=== PATIENT | male | born 1950 | race Caucasian/White ===

== ENCOUNTER 2018-03-01 09:13 | Outpatient (CLI) | payer MEDICARE, BC ==
--- NOTE | 2018-03-01 11:03 | CT ---
CHEST CTA WITH AND WITHOUT CONTRAST: HISTORY: Coronary mapping CTA. COMPARISON: None. TECHNIQUE: Pre and post contrast chest CT is performed in the axial plane. FINDINGS: Large subcarinal lymph node, measuring 2 x 0.7 cm. Nonenlarged prevascular lymph nodes. The visuali zed aorta and heart are unremarkable. No significant pericardial fluid. No mediastinal mass, lympha denopathy, or hematoma. Adequate contrast opacification of the central pulmonary arteries. No filling defects. Trachea and central bronchi are patent. There are minimal dependent atelectatic changes. There may be a small left-sided hernia, containing mesenteric fat. No obvious masses in the lung parenchyma. Nodule in the right lower lobe, measuring 4 mm, is felt to be incidental. IMPRESSION: Nonspecific borderline enlarged subcarinal lymph node, as described above. POS: MICAELA
[2018-03-01 11:14] LABS: Hemoglobin 15.2 g/dL (14.0-18.0); Mean Corpuscular Hemoglobin 30.9 pg (27.0-31.0); Mean Corpuscular Volume 93.8 fL (78.0-98.0); Mean Platelet Volume 9.1 fL (7.4-10.4); Platelet Count 220 thou/uL (130-400); RBC Distribution Width 12.6 % (11.5-14.5); Red Blood Cell (RBC) Count 4.92 mill/uL (4.70-6.10); White Blood Cell (WBC) Count 6.9 thou/uL (4.8-10.8)
[2018-03-01 13:17] LABS: PTT 27.9 SEC (22.9-36.1)
[2018-03-01 13:18] LABS: INR-International Normal Ratio 1.2; Prothrombin Time 14.8 SEC (12.0-14.7)
[2018-03-01 13:19] LABS: Anion Gap 15 mmol/L (10-20); BUN (Urea Nitrogen) 22 mg/dL (8.4-25.7); Calc. Creatinine Clearance 0 mL/min (70-130); Carbon Dioxide 26 mmol/L (23-31); Chloride 103 mmol/L (98-107); Estimated GFR-MDRD 69; Glucose 91 mg/dL (80-115); Potassium 4.6 mmol/L (3.5-5.1); Sodium 139 mmol/L (136-145)
[2018-03-01] MEDS ORDERED: Iopamidol 370 76% 100 ML VIAL ONE (13:34)
--- NOTE | 2018-03-01 17:30 | EKG ---
Test Reason : Blood Pressure : / mmHG Vent. Rate : 091 BPM Atrial Rate : 178 BPM P-R Int : 000 ms QRS Dur : 084 ms QT Int : 362 ms P-R-T Axes : 000 -15 017 degrees QTc Int : 445 ms Atrial fibrillation Inferior infarct , age undetermined Abnormal ECG No previous ECGs available Confirmed by ANNA VALLADARES ([id number]) on 03/01/2018 5:29:52 PM Referred By: BUBBA Confirmed By:ANNA VALLADARES
== END 2018-03-01 09:14 | disposition home or self-care (01) ==
LOC: CT 09:13
PROVIDERS: ATTEND Internal Medicine Cardiovascular Disease
DX: I48.91 Unspecified atrial fibrillation (principal); R59.0 Localized enlarged lymph nodes
CPT/HCPCS: 71275; 80048; 82565; 85027; 85610; 85730; 93005; 93010

== ENCOUNTER 2018-03-02 05:51 | Observation (INO) | payer MEDICARE, BC ==
[2018-03-01 11:21] VITALS: BMI 39.4
[2018-03-02] MEDS ORDERED: Lidocaine 1% (PF) 30 ML VIAL ONE (06:43)
[2018-03-02] MEDS ORDERED: Heparin 10,000 UNITS/1 ML VIAL ONE ×3 (07:38→10:43)
[2018-03-02] MEDS ORDERED: Fentanyl 100 MCG/2 ML VIAL ONE (08:13)
[2018-03-02] MEDS ORDERED: Isoproterenol 0.2 MG/1 ML AMP ONE (09:46)
[2018-03-02] MEDS ORDERED: Protamine Sulfate 50 MG/5 ML VIAL ONE (10:50)
--- NOTE | 2018-03-02 11:26 | OP ---
DATE OF PROCEDURE: 03/02/2018 PROCEDURE: 1. Comprehensive EP testing. 3D mapping and ablation of atrial fibrillation. 2. Transseptal catheterization x2. 3. Intracardiac echocardiography. CLINICAL INDICATION: Chronic atrial fibrillation. TEARER: Young Muhammad M.D. ASA CLASSIFICATION: 3. ANESTHESIA: General endotracheal anesthesia per Anesthesiology. ADDITIONAL CARDIAC MEDICATIONS: Isoproterenol 10 mcg per minute infusion for 10 minutes. Total hepa rin given 19,000 units. Total protamine given 40 mg. TOTAL RADIOFREQUENCY TIME: 59 minutes 5 seconds. TOTAL FLUOROSCOPY TIME: Zero. ACUTE COMPLICATIONS: None. METHODS: After informed consent was obtained, the patient taken to the EP lab in fasting state. Bot h groins were prepped and draped using ultrasound guidance, the right and left femoral veins were acc essed and wires were inserted into the central venous system. The wires were used to place an 8 Fren ch and 11-Tajik sheath in the left groin, 2 8 Tajik sheaths in the right groin. All 8 Tajik sheat hs were then replaced by long sheaths for catheter stability. A 10 Tajik echo probe was placed in l eft groin advanced to the right atrium and the right ventricle for imaging. A circular ablation cath eter placed in right groin advanced into the right atrium. A 3D map was obtained to the right atrium and the coronary sinus. The patient was then anticoagulated. A 20-pole catheter placed in left jayden in advanced up to the coronary sinus, the proximal end was in the muna terminalis. An esophageal t emperature probe was placed in the esophagus, colocated with a sensored catheter for visualization of the 3D mapping environment. Transseptal catheterization was performed using ultrasound guidance and 3D mapping. A 3D map was obtained to the left atrium and ablation was delivered at the antral level of all pulmonary veins and posterior wall of the left atrium. The lower portion of the left atrium including tissue overlying the coronary sinus and the roof all the way up to the mitral valve annulus . Ablation was also delivered debulking the coronary sinus. The patient was then cardioverted no fu rther arrhythmias were seen despite ____ challenge. RESULTS: 1. Baseline intervals; HV interval 40 milliseconds, both at the beginning of the procedure and after scientology of sinus rhythm. 2. Atrial function. The patient was in a coarse atrial fibrillation with moderate to severe scarrin g seen in the left atrium. Ablation was delivered isolating all 4 pulmonary veins and the posterior wall of the left atrium as well as the roof and the coronary sinus. The left atrial appendage was ab lated at the base, but was not isolated. Coronary sinus was debulked, but not completely isolated ex cept on the distal end. IMPRESSION: Successful PV isolation including posterior wall roof, floor and debulking of the solomon ry sinus. RECOMMENDATION: Continue with oral anticoagulation for a minimum of 3 months.
[2018-03-02] MEDS ORDERED: Loratadine 10 MG TAB PO PRN (11:52)
[2018-03-02] MEDS ORDERED: MUCINEX D PO PRN (11:53)
[2018-03-02] MEDS ORDERED: Dexamethasone 20 MG/5 ML VIAL ONE (14:38)
[2018-03-02] MEDS ORDERED: PROPOFOL 200 MG/20 ML VIAL ONE (14:38)
[2018-03-02] MEDS ORDERED: Glycopyrrolate 0.2 MG/ML 5 ML SYRINGE ONE (14:38)
[2018-03-02] MEDS ORDERED: Lidocaine 1% PF 5 ML VIAL ONE (14:38)
[2018-03-02] MEDS ORDERED: Heparin 30,000 units/30 ml VIAL ONE (14:38)
[2018-03-02] MEDS ORDERED: PHENYLEPHRINE-NS 100 MCG/ML 10 ML SYRINGE ONE (14:38)
[2018-03-02] MEDS ORDERED: Furosemide 100 MG/10 ML VIAL SLOW IVP SCH ×2 (16:30→21:00)
[2018-03-02] MEDS ORDERED: Atorvastatin Calcium 20 MG TAB PO SCH (21:00)
--- NOTE | 2018-03-03 06:17 | EKG ---
Test Reason : ABLATION Blood Pressure : / mmHG Vent. Rate : 092 BPM Atrial Rate : 092 BPM P-R Int : 238 ms QRS Dur : 096 ms QT Int : 398 ms P-R-T Axes : 060 -11 051 degrees QTc Int : 492 ms Sinus rhythm with 1st degree A-V block Inferior infarct (cited on or before 01-MAR-2018) Abnormal ECG When compared with ECG of 01-MAR-2018 12:13, Sinus rhythm has replaced Atrial fibrillation ST elevation now present in Inferior leads /minimal elevation QT has lengthened Confirmed by ANNA VALLADARES ([id number]) on 03/03/2018 6:17:11 AM Referred By: BUBBA Confirmed By:ANNA VALLADARES
--- NOTE | 2018-03-03 07:59 | DIS ---
DATE OF ADMISSION: 03/02/2018 DATE OF DISCHARGE: 03/03/2018 TOTAL LENGTH OF STAY: 23 hours. DISCHARGE DIAGNOSIS: Atrial fibrillation. PROCEDURE PERFORMED: Comprehensive EP testing with 3D mapping and ablation of atrial fibrillation. CLINICAL SUMMARY: The patient underwent extensive ablation of his left atrium isolating veins, poste rior wall and roof and coronary sinus yesterday. His postoperative course was uncomplicated. He is being discharged home in stable condition. DISCHARGE MEDICATIONS: Xarelto 20 mg every day, Lipitor 20 mg every day, metoprolol 37.5 mg every da y, vitamin D, C and E supplements, zinc supplements, fatty acid supplements and olmesartan 20 mg p.o. q.a.m. He is also being given a prescription for Lasix 40 mg b.i.d. and potassium 20 mEq b.i.d. for 5 days and colchicine 0.3 mg p.o. b.i.d. for 20 days. FOLLOWUP: Follow up is with me in 6 weeks.
[2018-03-03 08:13] VITALS: BP 146/67; TEMP 98.3
[2018-03-03] MEDS ORDERED: Fish Oil 1,000 MG CAP PO SCH (09:00)
[2018-03-03] MEDS ORDERED: Furosemide 100 MG/10 ML VIAL SLOW IVP SCH (09:00)
[2018-03-03] MEDS ORDERED: Ascorbic Acid 500 mg Chewable Tablet PO SCH (09:00)
[2018-03-03] MEDS ORDERED: Cefdinir 300 MG CAP PO SCH (09:00)
[2018-03-03] MEDS ORDERED: Azithromycin 250 MG TAB PO SCH (09:00)
[2018-03-03] MEDS ORDERED: Rivaroxaban 10 MG TAB PO SCH (09:00)
--- NOTE | 2018-03-03 13:47 | EKG ---
Test Reason : Blood Pressure : / mmHG Vent. Rate : 089 BPM Atrial Rate : 089 BPM P-R Int : 214 ms QRS Dur : 090 ms QT Int : 366 ms P-R-T Axes : 019 000 034 degrees QTc Int : 445 ms Sinus rhythm with 1st degree A-V block with Premature supraventricular complexes Inferior infarct (cited on or before 01-MAR-2018) Abnormal ECG When compared with ECG of 02-MAR-2018 11:18, Premature supraventricular complexes are now Present QT has shortened Confirmed by ANNA VALLADARES ([id number]) on 03/03/2018 1:47:14 PM Referred By: BUBBA Confirmed By:ANNA VALLADARES
== END 2018-03-03 09:07 | disposition home or self-care (01) ==
LOC: CCL 05:51 → 2SW 11:35
PROVIDERS: ADMIT Internal Medicine Cardiovascular Disease; ATTEND Internal Medicine Cardiovascular Disease
PROC: 4A023FZ Measurement of Cardiac Rhythm, Percutaneous Approach (ICD-10-PCS; principal; 2018-03-02)
PROC: 4A0234Z Measurement of Cardiac Electrical Activity, Percutaneous Approach (ICD-10-PCS; 2018-03-02)
PROC: 02583ZZ Destruction of Conduction Mechanism, Percutaneous Approach (ICD-10-PCS; 2018-03-02)
PROC: 02K83ZZ Map Conduction Mechanism, Percutaneous Approach (ICD-10-PCS; 2018-03-02)
DX: I48.2 Chronic atrial fibrillation (principal); I48.1 Persistent atrial fibrillation; I10 Essential (primary) hypertension; Z86.718 Personal history of other venous thrombosis and embolism; Z79.01 Long term (current) use of anticoagulants; Z79.899 Other long term (current) drug therapy
CPT/HCPCS: 76942; 85347 ×2; 93005 ×2; 93613; 93623; 93656; 93662; 96374; 96376; C1731; C1732 ×3; C1759; C1769; G0378; 93010; J1100; J1644; J1940; J2001; J2704; J2720; J3010

== ENCOUNTER 2018-04-11 10:01 | Day surgery (SDC) | payer MEDICARE, BC ==
[2018-04-10 12:28] VITALS: BMI 38.7
[2018-04-11 10:55] LABS: #Eosinphils 0.1 thou/uL (0.0-0.7); #Lymphocytes 2.3 thou/uL (1.20-3.40); #Monocytes 0.5 thou/uL (0.11-0.59); #Neutrophils 4.5 thou/uL (1.40-6.50); %Basophils 0.4 % (0.0-1.0); %Eosinophils 1.9 % (0.0-10.0); %Lymphocytes 30.3 % (21.0-51.0); %Neutrophils 60.4 % (42.0-75.0); Hemoglobin 14.3 g/dL (14.0-18.0); Mean Corpuscular HGB CONC 32.9 g/dL (32.0-36.0); Mean Corpuscular Hemoglobin 30.9 pg (27.0-31.0); Mean Corpuscular Volume 93.8 fL (78.0-98.0); Mean Platelet Volume 8.8 fL (7.4-10.4); Platelet Count 179 thou/uL (130-400); RBC Distribution Width 12.3 % (11.5-14.5); Red Blood Cell (RBC) Count 4.62 mill/uL (4.70-6.10); White Blood Cell (WBC) Count 7.4 thou/uL (4.8-10.8)
[2018-04-11 10:58] LABS: INR-International Normal Ratio 1.3; PTT 28.4 SEC (22.9-36.1); Prothrombin Time 16.4 SEC (12.0-14.7)
[2018-04-11 11:10] LABS: Anion Gap 12 mmol/L (10-20); BUN (Urea Nitrogen) 23 mg/dL (8.4-25.7); Calc. Creatinine Clearance 123 mL/min (70-130); Calcium 9.5 mg/dL (7.8-10.44); Carbon Dioxide 26 mmol/L (23-31); Chloride 105 mmol/L (98-107); Estimated GFR-MDRD 64; Glucose 100 mg/dL (80-115); Potassium 4.3 mmol/L (3.5-5.1); Sodium 139 mmol/L (136-145)
[2018-04-11] MEDS ORDERED: Lisinopril 10 MG TAB ONE (12:11)
[2018-04-11] MEDS ORDERED: PROPOFOL 0 ML ONE (12:11)
[2018-04-11] MEDS ORDERED: Lidocaine 2% PF 100 mg/5 ml Syringe ONE (12:25)
[2018-04-11] MEDS ORDERED: PROPOFOL 20 ML ONE ×2 (12:25→12:26)
--- NOTE | 2018-04-11 13:24 | OP ---
DATE OF PROCEDURE: 04/11/2018 SURGEON: Dr. Alex Mcclendon PROCEDURE: Cardioversion. REFERRING PHYSICIAN: Dr. William REASON FOR PROCEDURE: Mr. Myeer is a 67-year-old man with prior history of persistent atrial fibril lation, status post pulmonary venous isolation procedure, who had an early recurrence of atrial fibri llation. He is on uninterrupted Xarelto. He also will be starting flecainide. He is here for cardi oversion. PROCEDURE: The patient received propofol by Anesthesia specialist. After adequate sedation achieved , a synchronized 150 joule failed, but a subsequent 300 joule converted him back to sinus rhythm, ret urned rates are 61 beats per minute. The patient tolerated the procedure well, no complications note d. PLAN: Continue flecainide and oral anticoagulants and routine followup in the office.
[2018-04-11] MEDS ORDERED: Lidocaine 1% PF 5 ML VIAL ONE (13:44)
[2018-04-11] MEDS ORDERED: PROPOFOL 200 MG/20 ML VIAL ONE (13:44)
--- NOTE | 2018-04-11 15:41 | EKG ---
Test Reason : PREOP Blood Pressure : / mmHG Vent. Rate : 072 BPM Atrial Rate : 416 BPM P-R Int : 000 ms QRS Dur : 094 ms QT Int : 400 ms P-R-T Axes : 000 -07 016 degrees QTc Int : 438 ms Atrial fibrillation Inferior infarct (cited on or before 01-MAR-2018) Abnormal ECG When compared with ECG of 03-MAR-2018 07:18, Atrial fibrillation has replaced Sinus rhythm Confirmed by JOSEPHINE HERNANDEZ, . SCece ([id number]) on 04/11/2018 3:41:25 PM Referred By: CHRIS Confirmed By:DR. Stacie BURTON MD
--- NOTE | 2018-04-11 15:48 | EKG ---
Test Reason : CARDIOVERSION Blood Pressure : / mmHG Vent. Rate : 055 BPM Atrial Rate : 056 BPM P-R Int : 236 ms QRS Dur : 100 ms QT Int : 444 ms P-R-T Axes : 047 -07 023 degrees QTc Int : 424 ms Sinus bradycardia with 1st degree A-V block Inferior infarct (cited on or before 01-MAR-2018) Abnormal ECG When compared with ECG of 11-APR-2018 10:58, (Unconfirmed) Sinus rhythm has replaced Atrial fibrillation Serial changes of Inferior infarct Present Confirmed by JOSEPHINE HERNANDEZ, . SCece ([id number]) on 04/11/2018 3:47:40 PM Referred By: [facility] Confirmed By:DR. Stacie BURTON MD
== END 2018-04-11 13:40 | disposition home or self-care (01) ==
LOC: CCL 10:01
PROVIDERS: ATTEND Internal Medicine Cardiovascular Disease
PROC: 5A2204Z Restoration of Cardiac Rhythm, Single (ICD-10-PCS; principal; 2018-04-11)
DX: I48.1 Persistent atrial fibrillation (principal); I10 Essential (primary) hypertension; E78.5 Hyperlipidemia, unspecified; E66.01 Morbid (severe) obesity due to excess calories; Z68.38 Body mass index [BMI] 38.0-38.9, adult; Z86.718 Personal history of other venous thrombosis and embolism; Z79.01 Long term (current) use of anticoagulants; Z79.899 Other long term (current) drug therapy; Z98.890 Other specified postprocedural states
CPT/HCPCS: 36415; 80048; 85025; 85610; 85730; 92960; 93005; 93010; J2001; J2704

== ENCOUNTER 2018-06-05 12:06 | Day surgery (SDC) | payer MEDICARE, BC ==
[2018-06-02 14:40] VITALS: BMI 39.4
[2018-06-05 12:59] LABS: #Basophils 0.1 thou/uL (0.0-0.2); #Lymphocytes 1.5 thou/uL (1.20-3.40); #Monocytes 0.4 thou/uL (0.11-0.59); #Neutrophils 7.7 thou/uL (1.40-6.50); %Basophils 0.6 % (0.0-1.0); %Eosinophils 0.4 % (0.0-10.0); %Lymphocytes 15.2 % (21.0-51.0); %Monocytes 4.1 % (0.0-10.0); %Neutrophils 79.7 % (42.0-75.0); Hemoglobin 14.5 g/dL (14.0-18.0); Mean Corpuscular HGB CONC 31.5 g/dL (32.0-36.0); Mean Corpuscular Hemoglobin 29.7 pg (27.0-31.0); Mean Corpuscular Volume 94.3 fL (78.0-98.0); Mean Platelet Volume 8.4 fL (7.4-10.4); Platelet Count 220 thou/uL (130-400); RBC Distribution Width 12.8 % (11.5-14.5); Red Blood Cell (RBC) Count 4.89 mill/uL (4.70-6.10); White Blood Cell (WBC) Count 9.7 thou/uL (4.8-10.8)
[2018-06-05] MEDS ORDERED: PROPOFOL 20 ML ONE (13:03)
[2018-06-05 13:05] LABS: INR-International Normal Ratio 1.1; PTT 26.6 SEC (22.9-36.1); Prothrombin Time 14.6 SEC (12.0-14.7)
[2018-06-05 13:18] LABS: Anion Gap 13 mmol/L (10-20); BUN (Urea Nitrogen) 20 mg/dL (8.4-25.7); Calc. Creatinine Clearance 152 mL/min (70-130); Calcium 9.5 mg/dL (7.8-10.44); Carbon Dioxide 25 mmol/L (23-31); Chloride 105 mmol/L (98-107); Estimated GFR-MDRD 80; Glucose 99 mg/dL (80-115); Potassium 4.5 mmol/L (3.5-5.1); Sodium 138 mmol/L (136-145)
[2018-06-05] MEDS ORDERED: PROPOFOL 200 MG/20 ML VIAL ONE (13:43)
--- NOTE | 2018-06-05 14:02 | OP ---
DATE OF PROCEDURE: 06/05/2018 SURGEON: Dr. Alex Mcclendon PROCEDURE: Cardioversion. REFERRING PHYSICIAN: Dr. Asim Chen REASON FOR PROCEDURE: Mr. Meyer is a 67-year-old man with prior history of paroxysmal atrial arrhyt hmias. He underwent a repeated pulmonary venous isolation procedure most recently by Dr. Muhammad on 0 03/02/2018, now has another recurrence. Here for a repeat cardioversion after increasing his flecaini de to 150 mg twice a day. PROCEDURE: The patient received propofol by Anesthesia specialist. After adequate level of sedation achieved, a synchronized 100 joule shock failed to convert him back to sinus rhythm. Following that a 300 joules synchronized shock was delivered which now converted him back to sinus rhythm. His rhy thm is 60 beats per minute. No complications noted. PLAN: Continue Eliquis and flecainide.
--- NOTE | 2018-06-11 21:20 | EKG ---
Test Reason : PREOP CARDIOVERSION Blood Pressure : / mmHG Vent. Rate : 080 BPM Atrial Rate : 330 BPM P-R Int : 000 ms QRS Dur : 106 ms QT Int : 400 ms P-R-T Axes : 000 -20 003 degrees QTc Int : 461 ms Atrial flutter with variable A-V block Inferior infarct (cited on or before 01-MAR-2018) Abnormal ECG When compared with ECG of 11-APR-2018 13:00, Atrial flutter has replaced Sinus rhythm Confirmed by YAMILET PACHECO (2) on 06/11/2018 9:20:19 PM Referred By: CHRIS Confirmed By:YAMILET PACHECO
--- NOTE | 2018-06-11 21:32 | EKG ---
Test Reason : POST CARDIOVERSION Blood Pressure : / mmHG Vent. Rate : 064 BPM Atrial Rate : 064 BPM P-R Int : 240 ms QRS Dur : 104 ms QT Int : 430 ms P-R-T Axes : 048 -15 022 degrees QTc Int : 443 ms Sinus rhythm with 1st degree A-V block Inferior infarct (cited on or before 01-MAR-2018) Abnormal ECG When compared with ECG of 05-JUN-2018 12:41, (Unconfirmed) Sinus rhythm has replaced Atrial flutter Confirmed by YAMILET PACHECO (2) on 06/11/2018 9:32:29 PM Referred By: CHRIS Confirmed By:YAMILET PACHECO
== END 2018-06-05 14:50 | disposition home or self-care (01) ==
LOC: CCL 12:06
PROVIDERS: ATTEND Internal Medicine Cardiovascular Disease
PROC: 5A2204Z Restoration of Cardiac Rhythm, Single (ICD-10-PCS; principal; 2018-06-05)
DX: I48.1 Persistent atrial fibrillation (principal); I48.4 Atypical atrial flutter; E78.5 Hyperlipidemia, unspecified; I10 Essential (primary) hypertension; E66.9 Obesity, unspecified; Z68.39 Body mass index [BMI] 39.0-39.9, adult; Z86.718 Personal history of other venous thrombosis and embolism; Z79.01 Long term (current) use of anticoagulants; Z79.52 Long term (current) use of systemic steroids; Z79.899 Other long term (current) drug therapy; Z98.890 Other specified postprocedural states
CPT/HCPCS: 36415; 80048; 85025; 85610; 85730; 92960; 93005; 93010; J2704

== ENCOUNTER 2018-06-29 05:57 | Observation (INO) | payer MEDICARE, BC ==
[2018-06-28 14:00] VITALS: BMI 39.4
[2018-06-29] MEDS ORDERED: Heparin 0 ML ONE (06:26)
[2018-06-29] MEDS ORDERED: Heparin 10,000 UNITS/1 ML VIAL ONE ×3 (06:26→11:49)
[2018-06-29] MEDS ORDERED: Heparin 25,000 units/D5W 0 ML ONE (06:27)
[2018-06-29] MEDS ORDERED: Ondansetron HCl/PF 4 MG/2 ML Vial IVP PRN ×2 (06:47→12:38)
[2018-06-29] MEDS ORDERED: Lidocaine 1% (PF) 30 ML VIAL ONE (06:49)
[2018-06-29] MEDS ORDERED: Fentanyl 100 MCG/2 ML VIAL ONE (06:57)
[2018-06-29] MEDS ORDERED: PHENYLEPHRINE-NS 100 MCG/ML 10 ML SYRINGE ONE (09:32)
[2018-06-29] MEDS ORDERED: Ondansetron PF 4 MG/2 ML Vial ONE (09:32)
[2018-06-29] MEDS ORDERED: Glycopyrrolate 0.2 MG/ML 5 ML SYRINGE ONE (09:32)
[2018-06-29] MEDS ORDERED: Ketorolac Tromethamine 30 MG/ML VIAL ONE (09:32)
[2018-06-29] MEDS ORDERED: Dexamethasone 20 MG/5 ML VIAL ONE (09:32)
[2018-06-29] MEDS ORDERED: Lidocaine 1% PF 5 ML VIAL ONE (09:32)
[2018-06-29] MEDS ORDERED: PROPOFOL 200 MG/20 ML VIAL ONE (09:32)
[2018-06-29] MEDS ORDERED: Protamine Sulfate 50 MG/5 ML VIAL ONE ×2 (12:26→12:31)
[2018-06-29] MEDS ORDERED: Isoproterenol 0.2 MG/1 ML AMP ONE (12:31)
[2018-06-29] MEDS ORDERED: Acetaminophen/Codeine 30-300mg Tablet PO PRN ×2 (14:45)
[2018-06-29] MEDS ORDERED: Furosemide 40 MG/4 ML VIAL SLOW IVP SCH (14:45)
[2018-06-29] MEDS ORDERED: Mometasone Furoate 120 PUFF 220 MCG INH PRN (16:55)
[2018-06-29] MEDS ORDERED: Loratadine 10 MG TAB PO PRN (16:55)
[2018-06-29] MEDS ORDERED: MUCINEX D PO PRN (16:57)
[2018-06-29] MEDS ORDERED: Atorvastatin Calcium 20 MG TAB PO SCH (21:00)
[2018-06-29] MEDS: Apixaban 5 MG TAB PO SCH (21:30)
[2018-06-29] MEDS: Flecainide 50 MG TAB PO SCH (21:30)
[2018-06-30] MEDS ORDERED: Furosemide 20 MG TAB PO SCH (09:00)
[2018-06-30] MEDS ORDERED: Zinc Sulfate 220 MG CAP PO SCH (09:00)
[2018-06-30] MEDS ORDERED: Ascorbic Acid 500 mg Chewable Tablet PO SCH (09:00)
--- NOTE | 2018-06-30 09:01 | OP ---
DATE OF PROCEDURE: 06/29/2018 PROCEDURE PERFORMED: Radiofrequency ablation for atrial fibrillation. PREOPERATIVE DIAGNOSES: Atrial fibrillation and atypical flutter. PROCEDURE DETAILS: The patient came to the EP lab in the postobstructive state. Informed consent was obtained. The patient was sedated by member of the anesthesia staff. Once this patient was adequately sedated, the right and left femoral regions were prepped and draped in the usual sterile fashion. Using a modified Seldinger technique and with ultrasound guidance, access was obtained x2 in the right femoral vein, x1 in the left femoral vein, and x1 in the right internal jugular vein. An intracardiac echocardiogram catheter was advanced from the left femoral vein placed in the right atrium for intraprocedural guidance. A duodecapolar catheter was advanced from the right internal jugular vein, placed into the coronary sinus with distal 10 poles for coronary sinus pacing and recording. Two transseptal punctures were made using an SL0 and an LA multipurpose sheath to place a 10-pole 20-mm circular mapping catheter into the left atrium as well as a J-curved [employer] cardiac ablation catheterization. A 3D electroanatomical map was made of the atypical atrial flutter. The cycle length of this flutter was approximately 200 milliseconds. The flutter was mapped to the roof area. After the map was made, radiofrequency application was delivered along the roof as well as the posterior wall resulting in termination of the flutter. The right inferior pulmonary vein needed to be re-isolated. This was, therefore, re-isolated as was the posterior wall down towards the mitral valve. The coronary sinus was ablated endocardially as well as epicardially through the coronary sinus, and the superior vena cava was also ablated. Isoproterenol was given. A total RF time of 41 minutes were delivered. There were no obvious nonpulmonary vein triggers. Catheters were, therefore, removed. Sheaths were removed, and hemostasis was obtained with placement of FK devices for the 3 femoral sheaths and manual pressure for the neck. The patient tolerated the procedure well and was discharged to the EP lab in stable condition. PROCEDURE PERFORMED: Atrial fibrillation ablation with transseptal puncture intracardiac guidance, 3D electroanatomical map drug delivery with isoproterenol, ablation of atypical atrial flutter which is an SVT. COMPLICATIONS: None acute. ESTIMATED BLOOD LOSS: Less than 30 mL. CONCLUSIONS: 1. Successful management of atrial flutter. 2. Successful re-isolation of posterior wall and pulmonary veins. 3. Successful ablation of the coronary sinus and superior vena cava. RECOMMENDATIONS: The patient will be at bedrest for 1 to 2 hours. He will continue anticoagulant therapy and antiarrhythmic drugs and follow up with Electrophysiology in 6 weeks. Job ID: [id number]
[2018-06-30] MEDS: Flecainide 50 MG TAB PO SCH (09:41)
[2018-06-30] MEDS: Apixaban 5 MG TAB PO SCH (09:41)
[2018-06-30 12:03] VITALS: BP 118/70; TEMP 98.4
--- NOTE | 2018-07-01 07:06 | DIS ---
DATE OF ADMISSION: 06/29/2018 DATE OF DISCHARGE: 06/30/2018 ADMITTING DIAGNOSES: 1. Paroxysmal atrial fibrillation. a. Prior history of pulmonary venous isolation procedure on 03/02/2018. b. Status post redo pulmonary venous isolation procedure on 06/29/[address] Ponce on a total of 41 minutes of ablation delivered. Atrial flutter was met to the roof area as well as the posterior wall where the flutter terminated. The right inferior pulmonary vein was re-isolated. Coronary sinus was ablated endocardially and epicardially. No other triggers were noted. HOSPITAL COURSE: He remained stable overnight. Subsequent days, he stayed in sinus rhythm. PHYSICAL EXAMINATION: VITAL SIGNS: Blood pressure 118/70, heart rate 83, respiratory rate 18, temperature 98.4 degrees Fahrenheit. GENERAL: Reveals alert and oriented man with elevated BMI. NECK: Supple. Jugular veins not distended. CHEST: Coarse without crackles. HEART: Sounds are regular rate and rhythm. No murmur or gallop. ABDOMEN: Benign. Bowel sounds positive. EXTREMITIES: Lower extremities; no edema, clubbing or cyanosis. The groin sites are without significant hematoma. DATABASE: Telemetry disclosed sinus rhythm. PLAN: Discharge home. The patient was given prescription for, 1. Protonix 40 mg for a month. 2. Carafate 1 g every 6 hours for the next 2 weeks, then stop. 3. He is also given a prescription for Lasix 40 mg p.r.n. for 10 pills. 4. K-Dur 20 mEq daily if needed with Lasix. He is encouraged to continue on his home medication except the flecainide will be stopped: 1. Apixaban 5 mg p.o. twice a day. 2. Metoprolol 50 mg daily. 3. Benicar. 4. Zinc supplement. 5. Ascorbic acid. 6. Cetirizine. 7. Guaifenesin. 8. Furosemide. 9. Lipitor to continue. FOLLOWUP: A 6-week followup will be requested. Job ID: [id number]
== END 2018-06-30 15:02 | disposition home or self-care (01) ==
LOC: CCL 05:57 → 2SW 12:40
PROVIDERS: ADMIT Specialist; ATTEND Specialist
PROC: 02583ZZ Destruction of Conduction Mechanism, Percutaneous Approach (ICD-10-PCS; principal; 2018-06-29)
PROC: 02K83ZZ Map Conduction Mechanism, Percutaneous Approach (ICD-10-PCS; 2018-06-29)
PROC: 4A023FZ Measurement of Cardiac Rhythm, Percutaneous Approach (ICD-10-PCS; 2018-06-29)
PROC: 4A0234Z Measurement of Cardiac Electrical Activity, Percutaneous Approach (ICD-10-PCS; 2018-06-29)
DX: I48.0 Paroxysmal atrial fibrillation (principal); I48.92 Unspecified atrial flutter; I47.1 Supraventricular tachycardia; I10 Essential (primary) hypertension; E66.9 Obesity, unspecified; Z68.39 Body mass index [BMI] 39.0-39.9, adult; Z79.01 Long term (current) use of anticoagulants; Z79.899 Other long term (current) drug therapy
CPT/HCPCS: 76942; 85347 ×2; 93005 ×2; 93613; 93623; 93656; 93657; 93662; 96374; C1731; C1759; C1769; G0378; 93010; J1100; J1644; J1885; J1940; J2001; J2405; J2704; J2720; J3010

== ENCOUNTER 2018-09-22 09:33 | Day surgery (SDC) | payer MEDICARE, BC ==
[2018-09-21 12:16] VITALS: BMI 38.7
[2018-09-22 10:28] LABS: #Eosinphils 0.1 thou/uL (0.0-0.7); #Lymphocytes 2.1 thou/uL (1.20-3.40); #Monocytes 0.4 thou/uL (0.11-0.59); #Neutrophils 3.4 thou/uL (1.40-6.50); %Basophils 0.3 % (0.0-1.0); %Eosinophils 2.3 % (0.0-10.0); %Lymphocytes 34.7 % (21.0-51.0); %Monocytes 6.1 % (0.0-10.0); %Neutrophils 56.6 % (42.0-75.0); Hemoglobin 13.8 g/dL (14.0-18.0); Mean Corpuscular HGB CONC 31.9 g/dL (32.0-36.0); Mean Corpuscular Hemoglobin 29.2 pg (27.0-31.0); Mean Corpuscular Volume 91.6 fL (78.0-98.0); Mean Platelet Volume 8.3 fL (7.4-10.4); Platelet Count 189 thou/uL (130-400); RBC Distribution Width 12.9 % (11.5-14.5); Red Blood Cell (RBC) Count 4.73 mill/uL (4.70-6.10); White Blood Cell (WBC) Count 5.9 thou/uL (4.8-10.8)
[2018-09-22 10:33] LABS: INR-International Normal Ratio 1.9; PTT 31.2 SEC (22.9-36.1); Prothrombin Time 21.5 SEC (12.0-14.7)
[2018-09-22 10:47] LABS: Anion Gap 12 mmol/L (10-20); BUN (Urea Nitrogen) 14 mg/dL (8.4-25.7); Calc. Creatinine Clearance 145 mL/min (70-130); Calcium 9.7 mg/dL (7.8-10.44); Carbon Dioxide 27 mmol/L (23-31); Chloride 106 mmol/L (98-107); Estimated GFR-MDRD 77; Glucose 91 mg/dL (80-115); Potassium 4.2 mmol/L (3.5-5.1); Sodium 141 mmol/L (136-145)
[2018-09-22] MEDS ORDERED: PROPOFOL 20 ML ONE (11:09)
--- NOTE | 2018-09-22 13:08 | OP ---
DATE OF PROCEDURE: 09/22/2018 CARDIOVERSION REPORT REASON FOR PROCEDURE: Mr. Meyer is a 67-year-old gentleman with history of recurrent atrial arrhythmias, multiple ablations in the past, most recently on June 29. He is here for recurrent atrial arrhythmias in August, status post flecainide loading. DESCRIPTION OF PROCEDURE: The patient received propofol by Anesthesia specialist. After adequate level of sedation achieved, a synchronized 200 joule shock externally delivered and promptly converted the patient back to sinus rhythm. CONCLUSIONS: Successful cardioversion. PLAN: Continue uninterrupted anticoagulation and continue flecainide therapy and routine followup in the office. Job ID: [id number]
[2018-09-22] MEDS ORDERED: PROPOFOL 200 MG/20 ML VIAL ONE (14:18)
--- NOTE | 2018-09-22 15:03 | EKG ---
Test Reason : PREOP Blood Pressure : / mmHG Vent. Rate : 078 BPM Atrial Rate : 441 BPM P-R Int : 000 ms QRS Dur : 096 ms QT Int : 390 ms P-R-T Axes : 000 -20 017 degrees QTc Int : 444 ms Atrial fibrillation Inferior infarct (cited on or before 29-JUN-2018) Abnormal ECG Confirmed by DOUG MANN ([id number]) on 09/22/2018 3:03:19 PM Referred By: CHRIS Confirmed By:DOUG MANN
== END 2018-09-22 12:15 | disposition home or self-care (01) ==
LOC: CCL 09:33
PROVIDERS: ATTEND Internal Medicine Cardiovascular Disease
PROC: 5A2204Z Restoration of Cardiac Rhythm, Single (ICD-10-PCS; principal; 2018-09-22)
DX: I49.8 Other specified cardiac arrhythmias (principal); Z79.01 Long term (current) use of anticoagulants; Z79.899 Other long term (current) drug therapy; Z98.890 Other specified postprocedural states
CPT/HCPCS: 80048; 85025; 85610; 85730; 92960; 93005; 93010; J2704

== ENCOUNTER 2018-12-12 05:53 | Observation (INO) | payer MEDICARE, BC ==
[2018-12-12] MEDS ORDERED: Heparin 10,000 UNITS/1 ML VIAL ONE ×2 (06:45→09:45)
[2018-12-12 07:04] LABS: #Eosinphils 0.2 thou/uL (0.0-0.7); #Lymphocytes 2.1 thou/uL (1.20-3.40); #Monocytes 0.5 thou/uL (0.11-0.59); #Neutrophils 3.1 thou/uL (1.40-6.50); %Basophils 0.5 % (0.0-1.0); %Eosinophils 2.6 % (0.0-10.0); %Lymphocytes 35.8 % (21.0-51.0); %Monocytes 8.9 % (0.0-10.0); %Neutrophils 52.3 % (42.0-75.0); Mean Corpuscular HGB CONC 33.1 g/dL (32.0-36.0); Mean Corpuscular Hemoglobin 30.5 pg (27.0-31.0); Mean Corpuscular Volume 92.2 fL (78.0-98.0); Mean Platelet Volume 8.7 fL (7.4-10.4); Platelet Count 169 thou/uL (130-400); RBC Distribution Width 13.2 % (11.5-14.5); Red Blood Cell (RBC) Count 4.59 mill/uL (4.70-6.10); White Blood Cell (WBC) Count 5.9 thou/uL (4.8-10.8)
[2018-12-12 07:07] LABS: INR-International Normal Ratio 1.6; PTT 31.4 SEC (22.9-36.1)
[2018-12-12 07:17] LABS: Anion Gap 13 mmol/L (10-20); BUN (Urea Nitrogen) 16 mg/dL (8.4-25.7); Calc. Creatinine Clearance 0 mL/min (70-130); Calcium 9.6 mg/dL (7.8-10.44); Carbon Dioxide 22 mmol/L (23-31); Chloride 108 mmol/L (98-107); Estimated GFR-MDRD 66; Glucose 102 mg/dL (80-115); Potassium 4.3 mmol/L (3.5-5.1); Sodium 139 mmol/L (136-145)
[2018-12-12] MEDS ORDERED: PROPOFOL 40 ML ONE (07:29)
[2018-12-12] MEDS ORDERED: Fentanyl 100 MCG/2 ML VIAL ONE (08:20)
[2018-12-12] MEDS ORDERED: PHENYLEPHRINE-NS 100 MCG/ML 10 ML SYRINGE ONE ×2 (09:06→11:26)
[2018-12-12] MEDS ORDERED: Isoproterenol 0.2 MG/1 ML AMP ONE (10:13)
[2018-12-12] MEDS ORDERED: Protamine Sulfate 50 MG/5 ML VIAL ONE (10:21)
[2018-12-12] MEDS ORDERED: guaiFENesin/DM ER PO PRN ×2 (11:09→11:15)
[2018-12-12] MEDS ORDERED: Loratadine 10 MG TAB PO PRN (11:12)
--- NOTE | 2018-12-12 11:18 | OP ---
DATE OF PROCEDURE: 12/12/2018 PROCEDURE PERFORMED: Transesophageal echocardiogram. INDICATION: The patient is a 68-year-old gentleman with paroxysmal atrial fibrillation. DESCRIPTION OF PROCEDURE: The patient was taken to the PACU. The patient was sedated by Anesthesiology. Transesophageal probe was placed into the distal esophagus and stomach. Echocardiographic images were obtained. The transesophageal probe was removed. FINDINGS: 1. Normal left ventricular systolic function. 2. Normal mitral and aortic valves. 3. Mild mitral regurgitation. 4. Mild tricuspid regurgitation. 5. No thrombus is noted in the left atrium or left atrial appendage. 6. Atherosclerotic debris in the descending aorta. IMPRESSION: No formed thrombus in left atrium or left atrial appendage. Job ID: [id number]
[2018-12-12] MEDS ORDERED: Heparin 30,000 units/30 ml VIAL ONE (11:26)
[2018-12-12] MEDS ORDERED: Ondansetron PF 4 MG/2 ML Vial ONE (11:26)
[2018-12-12] MEDS ORDERED: Rocuronium Bromide 10 MG/ML (10ML VIAL) ONE (11:26)
[2018-12-12] MEDS ORDERED: PROPOFOL 200 MG/20 ML VIAL ONE (11:26)
[2018-12-12] MEDS ORDERED: Glycopyrrolate 0.2 MG/ML 5 ML SYRINGE ONE (11:26)
[2018-12-12 12:12] VITALS: BMI 39.9
[2018-12-12] MEDS ORDERED: Furosemide 20 MG/2 ML VIAL SLOW IVP SCH (12:30)
[2018-12-12] MEDS ORDERED: Potassium Chloride 20 MEQ TAB PO SCH (12:30)
[2018-12-12] MEDS ORDERED: Prevnar 13-Val Conj/PF 0.5 ML SYRINGE IM ONE (13:30)
[2018-12-12] MEDS ORDERED: Acetaminophen 500 MG TAB PO PRN (14:11)
[2018-12-12] MEDS ORDERED: Acetaminophen/Codeine 30-300mg Tablet PO PRN (14:12)
[2018-12-12] MEDS ORDERED: Cyclobenzaprine 10 MG TAB PO SCH (15:45)
[2018-12-12] MEDS ORDERED: Warfarin Sodium 7.5 MG TAB PO SCH (17:00)
[2018-12-12] MEDS ORDERED: Atorvastatin Calcium 20 MG TAB PO SCH (21:00)
[2018-12-13 06:37] LABS: INR-International Normal Ratio 1.6; Prothrombin Time 19.1 SEC (12.0-14.7)
[2018-12-13] MEDS ORDERED: Ascorbic Acid 500 mg Chewable Tablet PO SCH (09:00)
[2018-12-13] MEDS ORDERED: Allopurinol 100 MG TAB PO SCH (09:00)
--- NOTE | 2018-12-13 09:33 | OP ---
DATE OF PROCEDURE: 12/12/2018 PROCEDURE PERFORMED: Atrial fibrillation ablation. PREOPERATIVE DIAGNOSIS: Atrial fibrillation. DESCRIPTION OF PROCEDURE: The patient came to the EP lab in the postabsorptive state. Informed consent was obtained. A time-out was called. The patient was sedated by member of the anesthesia staff. Once the patient was adequately sedated, the right and left femoral regions were prepped and draped in usual sterile fashion as was the internal jugular area. Using a modified Seldinger technique and with ultrasound-guided access, access was obtained x2 in the right femoral vein, x1 in left femoral vein, and x1 in the right internal jugular vein. Through the right internal jugular vein, a 7-Cook Islander sheath was advanced and through that, a 20-pole Duo-Deca catheter was placed with the distal 10 poles in the coronary sinus for left atrial pacing and recording. Two 8-[place]er sheaths were placed in the right femoral vein and a 10-[place]er sheath was placed in the left femoral vein to advance intracardiac echo for intraprocedural monitoring and guidance. Heparin bolus was given to achieve an ACT of 350 seconds or greater. The two 8-[place] Islander sheaths were exchanged for long sheaths, one being an SL0 and the other one being an LA multipurpose sheath for a circular mapping catheter as well as a Carto J-curve STSF catheter. A 3D electroanatomical map was made with voltage map showing areas where the previous ablation was successful and areas of recurrence. It appeared that the posterior wall had some recurrence as well as the roof, in addition, anterior segment of the left upper pulmonary vein appeared to have recurrence. Based on this, radiofrequency was delivered in the left atrium, posterior wall, anterior wall, base of the appendage, endocardial coronary sinus, and epicardial coronary sinus with a target output of 40 leong. In addition, isolation of the SVC was performed. Isolation of the posterior wall was performed, isolation of the coronary sinus was performed. Slight delay in the left atrial appendage was achieved. Re-isolation of left upper pulmonary vein was achieved, then isolation of superior vena cava was achieved. A total of 53 minutes of radiofrequency was delivered. Following this, the patient was cardioverted to normal sinus rhythm and a bolus of isoproterenol fail to demonstrate any additional areas requiring ablation. The pacing was also performed in the left ventricle and the HV interval was 52 milliseconds. Based on this, catheters were removed. Sheaths were removed and hemostasis obtained by deployment of the Vascade collagen plugs in the femoral sheaths as well as manual pressure for the neck. The patient tolerated the procedure well and was discharged from the EP lab in stable condition. A survey utilizing ICE demonstrated no evidence of pericardial effusion. ESTIMATED BLOOD LOSS: Less than 30 mL. COMPLICATIONS: None acute. CONCLUSIONS: Successful re-isolation of pulmonary veins, posterior wall, coronary sinus, delay in the left atrial appendage, and ablation and isolation of the superior vena cava. RECOMMENDATIONS: The patient will be at bedrest. He will continue anticoagulant therapy and follow up with Dr. Mcclendon. Job ID: [id number]
[2018-12-13 12:18] VITALS: BP 114/67; TEMP 98.4
[2018-12-13] MEDS ORDERED: Warfarin Sodium 7.5 MG TAB PO SCH (17:00)
--- NOTE | 2018-12-14 06:52 | DIS ---
DATE OF ADMISSION: 12/12/2018 DATE OF DISCHARGE: 12/13/2018 DIAGNOSIS: Atrial fibrillation. PROCEDURES PERFORMED: Include transesophageal echocardiogram to evaluate for left atrial appendage thrombus and three dimensional mapping and ablation for atrial fibrillation. A total of 53 minutes RF energy was delivered, afterward the patient was cardioverted to normal sinus rhythm. He was noninducible, both on and off Isuprel after cardioversion. He underwent successful re-isolation of the pulmonary veins, posterior wall, coronary sinus, delay in the left atrial appendage, and ablation and isolation of the SVC. SUBJECTIVE: Mr. Meyer is feeling well today. He denies heart racing, palpitations, chest pain, pressure, syncope, near syncope, stroke, stroke-like symptoms, bleeding at his groin site, nausea, vomiting, diarrhea, or urinary difficulties. He did have some muscle spasms last night that have subsided. Overall, he feels he is in good condition and ready to go home. REVIEW OF SYSTEMS: Eight-point review of systems is negative except as listed above in the subjective portion. OBJECTIVE: VITAL SIGNS: Temp 98.3, pulse 96, blood pressure 103/57, respirations 20, oxygen is 95% on room air. GENERAL: The patient is alert and oriented. Speech is clear. Affect is appropriate. NEUROLOGIC: Grossly intact and nonfocal. NECK: Supple without jugular venous distention. LUNGS: Clear to auscultation. HEART: Rate is irregularly irregular. ABDOMEN: Soft and nontender. Hepatojugular reflux is mildly positive. EXTREMITIES: Warm and dry to touch without clubbing, cyanosis, or edema, and gait is stable. Bilateral groin sites are stable. There is a small amount of drainage on the left groin site as there was a small ooze after his bedrest yesterday, but site has been stable according to nursing since last night. There is no hematoma or signs of recent bleeding issue. LABORATORY DATA: Telemetry and EKG reflect sinus rhythm and sinus tachycardia, but no atrial arrhythmias since the time of ablation and minimal PACs as well. DISCHARGE INSTRUCTIONS: No lifting more than 10 pounds for 1 week. No soaking baths for 1 week. In one week, he may resume activity gradually and as tolerated. He is to contact [facility] with any postablation concerns or questions. DISCHARGE MEDICATIONS: Resuming home medications of 1. Zyloprim one tab daily. 2. Mucinex as needed. 3. Warfarin 7.5 mg p.o. daily (this is managed by his primary care provider in [place]). 4. Benicar 20 mg p.o. daily (hold for systolic blood pressure less than 110). 5. Metoprolol succinate 50 mg p.o. q.a.m. 6. Zyrtec 10 mg daily as needed. 7. Atorvastatin 20 mg at bedtime. 8. Vitamin C daily. New prescriptions provided; 1. Sucralfate 1 g p.o. before meals and at bedtime x2 weeks. 2. Protonix 40 mg p.o. daily x30 days. 3. Furosemide 40 mg p.o. p.r.n. shortness of breath, edema, weight gain, to be taken with potassium chloride 20 mEq one tab. 4. Flecainide 50 mg p.o. b.i.d. will be resumed during this acute recovery phase of his ablation. CONDITION AT DISCHARGE: Stable. FOLLOWUP: The patient has a followup appointment scheduled and in his discharge packet. Job ID: [id number]
== END 2018-12-13 12:56 | disposition home or self-care (01) ==
LOC: CCL 05:53 → 2SW 11:15
PROVIDERS: ADMIT Specialist; ATTEND Specialist
PROC: 02583ZZ Destruction of Conduction Mechanism, Percutaneous Approach (ICD-10-PCS; principal; 2018-12-12)
PROC: B245ZZ4 Ultrasonography of Left Heart, Transesophageal (ICD-10-PCS; 2018-12-12)
DX: I48.0 Paroxysmal atrial fibrillation (principal); I08.1 Rheumatic disorders of both mitral and tricuspid valves; I10 Essential (primary) hypertension; E78.5 Hyperlipidemia, unspecified; E66.9 Obesity, unspecified; Z68.41 Body mass index [BMI] 40.0-44.9, adult; Z79.01 Long term (current) use of anticoagulants; Z79.899 Other long term (current) drug therapy
CPT/HCPCS: 76942; 80048; 85025; 85347 ×2; 85610 ×2; 85730; 92960; 93005; 93312; 93613; 93622; 93655; 93656; 93662; 96374; C1731; C1759; C1769; 36415; 93010; J1644; J1940; J2405; J2704; J2720; J3010

== ENCOUNTER 2019-04-09 08:48 | Day surgery (SDC) | payer MEDICARE, BC ==
[2019-04-06 15:06] VITALS: BMI 41.2
[2019-04-09 09:36] LABS: #Basophils 0.1 thou/uL (0.0-0.2); #Eosinphils 0.2 thou/uL (0.0-0.7); #Lymphocytes 2.2 thou/uL (1.20-3.40); #Monocytes 0.5 thou/uL (0.11-0.59); #Neutrophils 4.2 thou/uL (1.40-6.50); %Basophils 0.8 % (0.0-1.0); %Eosinophils 2.3 % (0.0-10.0); %Monocytes 7.5 % (0.0-10.0); %Neutrophils 58.4 % (42.0-75.0); Hemoglobin 14.6 g/dL (14.0-18.0); Mean Corpuscular HGB CONC 33.5 g/dL (32.0-36.0); Mean Corpuscular Hemoglobin 31.3 pg (27.0-31.0); Mean Corpuscular Volume 93.3 fL (78.0-98.0); Mean Platelet Volume 8.3 fL (7.4-10.4); Platelet Count 212 thou/uL (130-400); RBC Distribution Width 12.3 % (11.5-14.5); Red Blood Cell (RBC) Count 4.65 mill/uL (4.70-6.10); White Blood Cell (WBC) Count 7.1 thou/uL (4.8-10.8)
[2019-04-09 09:44] LABS: INR-International Normal Ratio 1.9; PTT 32.7 SEC (22.9-36.1); Prothrombin Time 21.5 SEC (12.0-14.7)
[2019-04-09 09:52] LABS: Anion Gap 12 mmol/L (10-20); BUN (Urea Nitrogen) 26 mg/dL (8.4-25.7); Calc. Creatinine Clearance 112 mL/min (70-130); Calcium 9.8 mg/dL (7.8-10.44); Carbon Dioxide 26 mmol/L (23-31); Chloride 104 mmol/L (98-107); Estimated GFR-MDRD 54; Glucose 101 mg/dL (80-115); Potassium 4.2 mmol/L (3.5-5.1); Sodium 138 mmol/L (136-145)
[2019-04-09] MEDS ORDERED: PROPOFOL 20 ML ONE (10:04)
--- NOTE | 2019-04-09 12:01 | OP ---
DATE OF PROCEDURE: 04/09/2019 PROCEDURE PERFORMED: Cardioversion. ADDITIONAL REFERRING PHYSICIAN: Dr. Pierre William. REASON FOR PROCEDURE: Mr. Meyer is a 68-year-old man with history of persistent atrial fibrillation, status post pulmonary venous isolation procedure repeatedly most recently on December 04, 2018. He has been on flecainide in lower dose now that has been increased to 150 mg twice a day. He is here for a planned cardioversion. EKG shows atypical atrial flutter at baseline. He has not interrupted his warfarin for anticoagulation. DESCRIPTION OF PROCEDURE: The patient received propofol by Anesthesia specialist. After adequate level of sedation achieved, a synchronized 100-joule external shock promptly converted the patient back to sinus rhythm. CONCLUSION: Successful cardioversion. PLAN: Continue anticoagulation and flecainide. Monitor for bradycardia for arrhythmias. Follow up in the office in 6 weeks. Job ID: [id number]
== END 2019-04-09 11:45 | disposition home or self-care (01) ==
LOC: CCL 08:48
PROVIDERS: ATTEND Internal Medicine Cardiovascular Disease
PROC: 5A2204Z Restoration of Cardiac Rhythm, Single (ICD-10-PCS; principal; 2019-04-09)
DX: I48.1 Persistent atrial fibrillation (principal); I48.4 Atypical atrial flutter; I10 Essential (primary) hypertension; E78.5 Hyperlipidemia, unspecified; E66.9 Obesity, unspecified; Z68.41 Body mass index [BMI] 40.0-44.9, adult; Z79.01 Long term (current) use of anticoagulants; Z79.899 Other long term (current) drug therapy
CPT/HCPCS: 80048; 85025; 85610; 85730; 92960; J2704

== ENCOUNTER 2020-09-16 09:22 | Outpatient (CLI) | payer MEDICARE, BC ==
[2020-09-16 11:45] LABS: Hemoglobin 14.5 g/dL (13.5-17.5); Mean Corpuscular HGB CONC 32.3 g/dL (32.0-36.0); Mean Corpuscular Hemoglobin 29.8 pg (27.0-33.0); Mean Corpuscular Volume 92.2 fl (81.2-95.1); Mean Platelet Volume 11.1 fl (7.4-10.4); Platelet Count 202 10x3/uL (150-450); RBC Distribution Width 13.2 % (11.5-14.5); Red Blood Cell (RBC) Count 4.87 10x6/uL (4.32-5.72); White Blood Cell (WBC) Count 7.2 10x3/uL (3.5-10.5)
[2020-09-16 11:54] LABS: Anion Gap 10 mmol/L (10-20); BUN (Urea Nitrogen) 16 mg/dL (8.4-25.7); Calc. Creatinine Clearance 0 mL/min (70-130); Carbon Dioxide 34 mmol/L (23-31); Chloride 101 mmol/L (98-107); Glucose 109 mg/dL (80-115); Potassium 4.6 mmol/L (3.5-5.1); Sodium 140 mmol/L (136-145)
[2020-09-16 12:15] LABS: INR-International Normal Ratio 3.3; PTT 44.5 sec (22.0-33.0); Prothrombin Time 32.1 sec (9.5-12.1)
[2020-09-16 19:07] LABS: SARS-CoV-2 PCR by NAA Not Detected (NotDetected)
== END 2020-09-16 09:23 | disposition home or self-care (01) ==
LOC: LABBT 09:22
PROVIDERS: ATTEND Internal Medicine Cardiovascular Disease
DX: Z01.818 Encounter for other preprocedural examination (principal); Z20.822 Contact with and (suspected) exposure to COVID-19
CPT/HCPCS: 80048; 85027; 85610; 85730; 93005; U0003; U0005; 87635; 93010